=== PATIENT | male | born 1995 | race Caucasian/White ===

== ENCOUNTER 2019-10-02 07:15 | Day surgery (SDC) | payer OTHER ==
[2019-09-29 12:16] VITALS: BMI 25.0
[~2019-10-02 07:15] MED LIST: ACETAMINOPHEN TAB 500 MG TAB PO ONE; DEXAMETHASONE SOD PHOSPHATE 10 MG/ML 1 ML VIAL IV ONE; HEPARIN SODIUM,PORCINE 5,000 UNIT/ML 1 ML VIAL SQ ONE; HYDROmorphone 0.5 MG/0.5 ML SYRINGE IVP PRN; LACTATED RINGERS 1,000 ML IV SCH; LIDOCAINE 1% (10MG/ML) FOR IV START INTRADERMA PRN; ONDANSETRON 4 MG/2 ML VIAL IVP ONE
--- NOTE | 2019-10-02 08:22 | P.GSHP ---
History of Present Illness H&P Date: 10/02/19 Chief Complaint: Right upper quadrant pain This a 24-year-old male with complaints of right quadrant pain. His recent ultrasound shows evidence of a contracted gallbladder. He presents today for laparoscopic cholecystectomy Past Medical History Past Medical History: GERD/Reflux Additional Past Medical History / Comment(s): Environmental Allergies. Pos gallstones. History of Any Multi-Drug Resistant Organisms: None Reported Past Surgical History: Orthopedic Surgery Additional Past Surgical History / Comment(s): RFA Fx surgery as child Past Anesthesia/Blood Transfusion Reactions: No Reported Reaction Smoking Status: Current some day smoker - Past Family History Mother Family Medical History: Cancer Medications and Allergies Home Medications Medication Instructions Recorded Confirmed Type Cariprazine HCl [Vraylar] 1.5 mg PO HS 09/29/19 10/02/19 History Escitalopram [Lexapro] 10 mg PO DAILY 09/29/19 10/02/19 History Allergies Allergy/AdvReac Type Severity Reaction Status Date / Time No Known Allergies Allergy Verified 10/02/19 07:31 Surgical - Exam Vital Signs Temp Pulse Resp BP Pulse Ox 97.5 F L 74 16 135/73 97 10/02/19 07:37 10/02/19 07:37 10/02/19 07:37 10/02/19 07:37 10/02/19 07:37 - General well developed, well nourished, no distress - Eyes PERRL - ENT normal pinna - Neck no masses - Respiratory normal expansion - Cardiovascular Rhythm: regular - Abdomen Mild right upper quadrant pain Abdomen: soft Assessment and Plan Assessment: Chronic cholecystitis. We'll perform laparoscopic cholecystectomy
[2019-10-02] MEDS ORDERED: ROCURONIUM BROMIDE 10 MG/ML 5 ML VIAL IV ONE (09:09)
[2019-10-02] MEDS ORDERED: LIDOCAINE 1% INJ 10MG/ML (20 ML MDV) ONE (09:09)
[2019-10-02] MEDS ORDERED: MIDAZOLAM 2 MG/2 ML VIAL ONE (09:09)
[2019-10-02] MEDS ORDERED: KETOROLAC 30 MG/ML 1 ML VIAL ONE (09:09)
[2019-10-02] MEDS ORDERED: SUCCINYLCHOLINE CHLORIDE 100 MG/5 ML SYR IV ONE (09:09)
[2019-10-02] MEDS ORDERED: fentaNYL (PF) 50 MCG/ML 2 ML AMP ONE (09:09)
[2019-10-02] MEDS ORDERED: PROPOFOL 10 MG/ML 20 ML VIAL IV ONE (09:09)
[2019-10-02] MEDS ORDERED: BUPIVACAIN-EPI 0.25%-1:200,000 30 ML VIAL SQ ONE (09:25)
--- NOTE | 2019-10-02 09:42 | P.OP ---
Date of Procedure: 10/02/19 Preoperative Diagnosis: Cholecystitis Postoperative Diagnosis: Cholelithiasis Cholelithiasis Procedure(s) Performed: Laparoscopic cholecystectomy Anesthesia: SORAYA Surgeon: Jim Mcallister Estimated Blood Loss (ml): 10 Pathology: other (Gallbladder) Condition: stable Disposition: PACU Description of Procedure: The patient was placed on the operating table. The patient received a general endotracheal tube anesthesia. The patients abdomen was prepped and draped in the usual sterile fashion. Through an infraumbilical stab incision, the fascia of the anterior abdominal wall was grasped with a pair of Kochers and then the Veress needle was placed in the peritoneal cavity. Position of the Veress needle was confirmed with positive drop test. The abdomen was then insufflated. After adequate insufflation, the 10 mm trocar was placed in the peritoneal cavity. Following this the laparoscope was placed in the peritoneal cavity. The patient was placed in the head-up, right side up position and then a 5 mm trocar was placed in the right lateral and right subcostal position under direct visualization. A 8 mm trocar was placed in the epigastric position. The gallbladder was grasped in the fundus and infundibulum. Traction on the gallbladder was placed in the lateral and the cephalad positions. The triangle of Calot was visualized.. The cystic duct was bluntly dissected until the union of the cystic duct and common bile duct was seen. A critical view of safety was achieved. The cystic duct was then divided and sealed with the Harmonic scissors. A PDS Endoloop was then placed throughout the cystic duct stump. The cystic artery divided and sealed with the Harmonic scissors. The gallbladder was then removed from the liver bed using Harmonic scissors. The gallbladder was then extracted through the epigastric port site. Operative field was checked for any bleeding spots and Harmonic scissors was used to coagulate the liver bed. The abdomen was irrigated. The trocars were removed. The skin was closed using interrupted 3-0 Vicryl suture. Dermabond dressing were applied. The patient tolerated the procedure well.
[2019-10-02 10:03] LABS: Glucose,Whole Blood 152 mg/dL (75-99)
[2019-10-02] MEDS ORDERED: LACTATED RINGERS 1,000 ML IV ONE (10:43)
[2019-10-02 11:00] VITALS: RESP 16
[2019-10-02 11:11] VITALS: BP 132/80; PULSE 63
[2019-10-02 11:22] VITALS: TEMP 97.6
== END 2019-10-02 11:35 | disposition home or self-care (01) ==
LOC: OR 07:15
PROVIDERS: ATTEND Surgery
DX: K80.10 Calculus of gallbladder with chronic cholecystitis without obstruction (principal); K21.9 Gastro-esophageal reflux disease without esophagitis; F17.210 Nicotine dependence, cigarettes, uncomplicated; F41.9 Anxiety disorder, unspecified; F32.9 Major depressive disorder, single episode, unspecified; Z91.09 Other allergy status, other than to drugs and biological substances; Z98.890 Other specified postprocedural states; Z87.81 Personal history of (healed) traumatic fracture; Z80.9 Family history of malignant neoplasm, unspecified; Z79.899 Other long term (current) drug therapy
CPT/HCPCS: 88304; 47562; J2250; J1644; J1100; J0690; J2405; J2001; J3010; J1885; J0330; J2704; J1170

== ENCOUNTER 2020-01-03 13:48 | Emergency (ER) | payer OTHER ==
[2020-01-03] MEDS ORDERED: SODIUM CHLORIDE 0.9% 1,000 ML IV STA (14:19)
[2020-01-03] MEDS ORDERED: ONDANSETRON 4 MG/2 ML VIAL IVP STA (14:19)
[2020-01-03] MEDS ORDERED: PANTOPRAZOLE 40 MG/10 ML VIAL IVP STA (14:19)
--- NOTE | 2020-01-03 14:20 | ED ---
General Adult HPI - General Chief complaint: Nausea/Vomiting/Diarrhea Stated complaint: Vomiting Time Seen by Provider: 01/03/20 14:00 Source: patient Mode of arrival: ambulatory Limitations: no limitations - History of Present Illness Initial comments: Patient is a 24-year-old male with recently diagnosis of GERD presenting to emergency Department with a chief complaint of black vomit. Patient reports over the last 2-3 days as developed several episodes of dark black vomit. Patient states he does not have any nausea but whenever he lays flat, he begins to vomit. Patient states there is no associated abdominal pain. States for the past several months is also been having diarrhea after he had a cholecystectomy which is typical for him. Although, he does report black stools over the last several days ever since he developed the black vomit. He denies any hematochezia. Denies any urinary symptoms. Denies penile discharge, testicular pain or swelling. States he does drink pop and coffee but not alcohol. Does not have any back pain chest pain shortness of breath. Does not take any antacids. Denies previous history of gastric or duodenal ulcers. - Related Data Home Medications Medication Instructions Recorded Confirmed Cariprazine HCl [Vraylar] 1.5 mg PO HS 09/29/19 10/02/19 Escitalopram [Lexapro] 10 mg PO DAILY 09/29/19 10/02/19 Previous Rx's Medication Instructions Recorded Docusate [Colace] 100 mg PO BID #20 capsule 10/02/19 HYDROcodone/APAP 5-325MG [Malone 1 tab PO Q6HR PRN #10 tab 10/02/19 5-325] Omeprazole [PriLOSEC] 20 mg PO AC-BRKFST #14 cap 01/03/20 Allergies Allergy/AdvReac Type Severity Reaction Status Date / Time No Known Allergies Allergy Verified 01/03/20 13:54 Review of Systems ROS Statement: Those systems with pertinent positive or pertinent negative responses have been documented in the HPI. ROS Other: All systems not noted in ROS Statement are negative. Past Medical History Past Medical History: GERD/Reflux Additional Past Medical History / Comment(s): Environmental Allergies. Pos gallstones. History of Any Multi-Drug Resistant Organisms: None Reported Past Surgical History: Cholecystectomy, Orthopedic Surgery Additional Past Surgical History / Comment(s): RFA Fx surgery as child Past Anesthesia/Blood Transfusion Reactions: No Reported Reaction Past Psychological History: Anxiety, Depression Smoking Status: Vaper Past Alcohol Use History: Occasional Past Drug Use History: Marijuana - Past Family History Mother Family Medical History: Cancer General Exam Limitations: no limitations General appearance: alert, in no apparent distress Head exam: Present: atraumatic, normocephalic, normal inspection Eye exam: Present: normal appearance, PERRL, EOMI Pupils: Present: normal accommodation ENT exam: Present: normal exam, normal oropharynx, mucous membranes moist, TM's normal bilaterally, normal external ear exam Neck exam: Present: normal inspection, full ROM. Absent: tenderness Respiratory exam: Present: normal lung sounds bilaterally. Absent: respiratory distress, wheezes, rales Cardiovascular Exam: Present: regular rate, normal rhythm, normal heart sounds GI/Abdominal exam: Present: soft. Absent: distended, tenderness, guarding, rebound Rectal exam: Present: normal inspection, normal rectal tone. Absent: black stool Extremities exam: Present: normal inspection, full ROM, normal capillary refill Back exam: Present: normal inspection, full ROM. Absent: tenderness Neurological exam: Present: alert, oriented X3, normal gait Psychiatric exam: Present: normal affect, normal mood Skin exam: Present: warm, dry, intact, normal color Course Vital Signs 01/03/20 01/03/20 01/03/20 13:51 15:00 17:41 Temperature 98.1 F 98.0 F Pulse Rate 97 80 83 Respiratory 20 18 18 Rate Blood Pressure 136/93 115/67 108/78 O2 Sat by Pulse 98 97 99 Oximetry Medical Decision Making - Medical Decision Making Patient is a 24-year-old male presenting to emergency Department with chief complaint of black vomit. Patient does not have any abdominal pain discomfort or nausea at this time. He does have history of GERD which is not treated with any medication. She does drink quite a bit of carbonated drinks and coffee. She does not drink any alcohol. Physical examination is unremarkable. CBC reveals no signs of anemia. CMP and UA are unremarkable. Occult stool was negative. Patient has had previous episodes similar to this but he has never been evaluated because the never lasted more than a day. Case was discussed with Dr. Haywood who contacted . He advised the patient have an outpatient follow-up with a GI specialist. Patient will be started on omeprazole daily. He was advised about a special diet regarding a concern for peptic ulcers. He was also advised on left thumb modifications regarding GERD. Strict return parameters were thoroughly discussed with patient was understanding and agreeable. Case discussed with physician. - Lab Data Result diagrams: 01/03/20 14:45 01/03/20 14:45 Lab Results 01/03/20 01/03/20 01/03/20 Range/Units 14:45 14:45 14:45 WBC 8.8 (3.8-10.6) k/uL RBC 5.17 (4.30-5.90) m/uL Hgb 15.3 (13.0-17.5) gm/dL Hct 45.7 (39.0-53.0) % MCV 88.4 (80.0-100.0) fL MCH 29.6 (25.0-35.0) pg MCHC 33.4 (31.0-37.0) g/dL RDW 12.2 (11.5-15.5) % Plt Count 275 (150-450) k/uL Neutrophils % 55 % Lymphocytes % 31 % Monocytes % 8 % Eosinophils % 2 % Basophils % 1 % Neutrophils # 4.8 (1.3-7.7) k/uL Lymphocytes # 2.7 (1.0-4.8) k/uL Monocytes # 0.7 (0-1.0) k/uL Eosinophils # 0.2 (0-0.7) k/uL Basophils # 0.1 (0-0.2) k/uL PT 10.1 (9.0-12.0) sec INR 1.0 (<1.2) APTT 22.9 (22.0-30.0) sec Sodium 140 (137-145) mmol/L Potassium 4.0 (3.5-5.1) mmol/L Chloride 105 (98-107) mmol/L Carbon Dioxide 29 (22-30) mmol/L Anion Gap 6 mmol/L BUN 13 (9-20) mg/dL Creatinine 1.00 (0.66-1.25) mg/dL Est GFR (CKD-EPI)AfAm >90 (>60 ml/min/1.73 sqM) Est GFR (CKD-EPI)NonAf >90 (>60 ml/min/1.73 sqM) Glucose 78 (74-99) mg/dL Calcium 9.6 (8.4-10.2) mg/dL Total Bilirubin 0.6 (0.2-1.3) mg/dL AST 36 (17-59) U/L ALT 54 H (4-49) U/L Alkaline Phosphatase 53 (38-126) U/L Total Protein 7.2 (6.3-8.2) g/dL Albumin 4.5 (3.5-5.0) g/dL Lipase 54 (23-300) U/L Stool Occult Blood (Negative) Blood Type Blood Type Confirm Blood Type Recheck Bld Type Recheck Status Antibody Screen Spec Expiration Date 01/03/20 01/03/20 01/03/20 Range/Units 14:45 14:45 15:05 WBC (3.8-10.6) k/uL RBC (4.30-5.90) m/uL Hgb (13.0-17.5) gm/dL Hct (39.0-53.0) % MCV (80.0-100.0) fL MCH (25.0-35.0) pg MCHC (31.0-37.0) g/dL RDW (11.5-15.5) % Plt Count (150-450) k/uL Neutrophils % % Lymphocytes % % Monocytes % % Eosinophils % % Basophils % % Neutrophils # (1.3-7.7) k/uL Lymphocytes # (1.0-4.8) k/uL Monocytes # (0-1.0) k/uL Eosinophils # (0-0.7) k/uL Basophils # (0-0.2) k/uL PT (9.0-12.0) sec INR (<1.2) APTT (22.0-30.0) sec Sodium (137-145) mmol/L Potassium (3.5-5.1) mmol/L Chloride (98-107) mmol/L Carbon Dioxide (22-30) mmol/L Anion Gap mmol/L BUN (9-20) mg/dL Creatinine (0.66-1.25) mg/dL Est GFR (CKD-EPI)AfAm (>60 ml/min/1.73 sqM) Est GFR (CKD-EPI)NonAf (>60 ml/min/1.73 sqM) Glucose (74-99) mg/dL Calcium (8.4-10.2) mg/dL Total Bilirubin (0.2-1.3) mg/dL AST (17-59) U/L ALT (4-49) U/L Alkaline Phosphatase (38-126) U/L Total Protein (6.3-8.2) g/dL Albumin (3.5-5.0) g/dL Lipase (23-300) U/L Stool Occult Blood Negative (Negative) Blood Type A Positive Blood Type Confirm A Positive Blood Type Recheck No Previous Record Bld Type Recheck Status CABO Indicated Antibody Screen NEGATIVE Spec Expiration Date 01/06/2020 - 2304 Disposition Clinical Impression: Dyspepsia, Nausea & vomiting Disposition: HOME SELF-CARE Condition: Stable Instructions (If sedation given, give patient instructions): Diet for Stomach Ulcers and Gastritis (ED), Gastroesophageal Reflux Disease (ED), Indigestion (ED) Additional Instructions: Follow-up with a GI specialist. Take medication as directed. Avoid alcohol, carbonated drinks or coffee. Avoid any acidic foods. Return to emergency department if symptoms worsen. Prescriptions: Omeprazole [PriLOSEC] 20 mg PO AC-BRKFST #14 cap Is patient prescribed a controlled substance at d/c from ED?: No Referrals: Sherlyn Guajardo DO [Primary Care Provider] - 1-2 days Valencia Alcantar MD [STAFF PHYSICIAN] - 1-2 days Time of Disposition: 16:42
[2020-01-03 15:04] LABS: Basophils # (A) 0.1 k/uL (0-0.2); Basophils % (A) 1 %; Eosinophils # (A) 0.2 k/uL (0-0.7); Eosinophils % (A) 2 %; HCT 45.7 % (39.0-53.0); HGB 15.3 gm/dL (13.0-17.5); Lymphocytes # (A) 2.7 k/uL (1.0-4.8); Lymphocytes % (A) 31 %; MCH 29.6 pg (25.0-35.0); MCHC 33.4 g/dL (31.0-37.0); MCV 88.4 fL (80.0-100.0); Monocytes # (A) 0.7 k/uL (0-1.0); Monocytes % (A) 8 %; Neutrophils # (A) 4.8 k/uL (1.3-7.7); Neutrophils % (A) 55 %; Platelet Count 275 k/uL (150-450); RBC 5.17 m/uL (4.30-5.90); RDW 12.2 % (11.5-15.5); WBC 8.8 k/uL (3.8-10.6)
[2020-01-03 15:13] LABS: ALT 54 U/L (4-49); AST 36 U/L (17-59); African American GFR (CKD) >90 (>60 ml/min/1.73 sqM); Albumin 4.5 g/dL (3.5-5.0); Alkaline Phosphatase 53 U/L (38-126); Anion Gap 6 mmol/L; Blood Urea Nitrogen 13 mg/dL (9-20); Calcium 9.6 mg/dL (8.4-10.2); Carbon Dioxide 29 mmol/L (22-30); Chloride 105 mmol/L (98-107); Glucose 78 mg/dL (74-99); Non-African American GFR(CKD) >90 (>60 ml/min/1.73 sqM); Partial Thromboplastin Time 22.9 sec (22.0-30.0); Prothrombin Time 10.1 sec (9.0-12.0); Sodium 140 mmol/L (137-145); Total Bilirubin 0.6 mg/dL (0.2-1.3); Total Protein 7.2 g/dL (6.3-8.2)
[2020-01-03 15:14] VITALS: RESP 18
[2020-01-03 17:42] VITALS: BP 108/78; PULSE 83; TEMP 98
== END 2020-01-03 17:42 | disposition home or self-care (01) ==
LOC: EC 13:48
DX: R10.13 Epigastric pain (principal); R11.2 Nausea with vomiting, unspecified; F41.9 Anxiety disorder, unspecified; F32.9 Major depressive disorder, single episode, unspecified; F17.290 Nicotine dependence, other tobacco product, uncomplicated; Z79.899 Other long term (current) drug therapy; Z90.49 Acquired absence of other specified parts of digestive tract
CPT/HCPCS: 36415; 86900; 86901; 80053; 83690; 85025; 85610; 85730; 86850; 82272; 99284; 96374; 96375; 96361 ×2; J2405; C9113

== ENCOUNTER 2020-09-18 22:45 | Emergency (ER) | payer OTHER ==
--- NOTE | 2020-09-18 23:03 | ED ---
Psych HPI - General Stated Complaint: Mental Health Time Seen by Provider: 09/18/20 23:02 - Related Data Home Medications Medication Instructions Recorded Confirmed FLUoxetine HCL [PROzac] 20 mg PO HS 09/18/20 09/18/20 Allergies Allergy/AdvReac Type Severity Reaction Status Date / Time No Known Allergies Allergy Verified 09/18/20 23:21 Review of Systems ROS Statement: Those systems with pertinent positive or pertinent negative responses have been documented in the HPI. ROS Other: All systems not noted in ROS Statement are negative. Past Medical History Past Medical History: GERD/Reflux Additional Past Medical History / Comment(s): Environmental Allergies. Pos gallstones. History of Any Multi-Drug Resistant Organisms: None Reported Past Surgical History: Cholecystectomy, Orthopedic Surgery Additional Past Surgical History / Comment(s): RFA Fx surgery as child Past Anesthesia/Blood Transfusion Reactions: No Reported Reaction Past Psychological History: Anxiety, Depression Smoking Status: Vaper Past Alcohol Use History: Occasional Past Drug Use History: Marijuana - Past Family History Mother Family Medical History: Cancer Course Vital Signs 09/18/20 22:50 Temperature 98.2 F Pulse Rate 82 Respiratory 16 Rate Blood Pressure 137/89 O2 Sat by Pulse 98 Oximetry Disposition Clinical Impression: Depression Disposition: HOME SELF-CARE Condition: Fair Instructions (If sedation given, give patient instructions): Depression (ED) Is patient prescribed a controlled substance at d/c from ED?: No Referrals: Sherlyn Guajardo DO [Primary Care Provider] - 1-2 days
[2020-09-18 23:08] VITALS: TEMP 98.2
[2020-09-19 02:41] VITALS: BP 133/74; PULSE 72; RESP 15
== END 2020-09-19 02:56 | disposition home or self-care (01) ==
LOC: EC 22:45
DX: F32.9 Major depressive disorder, single episode, unspecified (principal); Z90.49 Acquired absence of other specified parts of digestive tract; F17.290 Nicotine dependence, other tobacco product, uncomplicated; F12.90 Cannabis use, unspecified, uncomplicated
CPT/HCPCS: 82075; 99283

== ENCOUNTER 2021-04-09 11:31 | Emergency (ER) | payer OTHER ==
[2021-04-09 12:15] VITALS: BP 128/72; PULSE 67; RESP 18; TEMP 98.2
[2021-04-09 12:48] LABS: Basophils % (A) 1 %; Eosinophils # (A) 0.2 k/uL (0-0.7); Eosinophils % (A) 3 %; HCT 40.8 % (39.0-53.0); HGB 14.1 gm/dL (13.0-17.5); Lymphocytes % (A) 31 %; MCH 30.4 pg (25.0-35.0); MCHC 34.5 g/dL (31.0-37.0); MCV 88.1 fL (80.0-100.0); Mean Platelet Volume 7.1; Monocytes # (A) 0.3 k/uL (0-1.0); Monocytes % (A) 4 %; Neutrophils # (A) 3.9 k/uL (1.3-7.7); Neutrophils % (A) 59 %; Platelet Count 304 k/uL (150-450); RBC 4.64 m/uL (4.30-5.90); RDW 13.3 % (11.5-15.5); WBC 6.5 k/uL (3.8-10.6)
[2021-04-09 13:33] LABS: African American GFR (CKD) >90 (>60 ml/min/1.73 sqM); Anion Gap 11 mmol/L; Blood Urea Nitrogen 15 mg/dL (9-20); Calcium 9.7 mg/dL (8.4-10.2); Carbon Dioxide 22 mmol/L (22-30); Chloride 106 mmol/L (98-107); Glucose 125 mg/dL (74-99); Non-African American GFR(CKD) >90 (>60 ml/min/1.73 sqM); Potassium 4.2 mmol/L (3.5-5.1); Sodium 139 mmol/L (137-145)
--- NOTE | 2021-04-09 13:54 | ED ---
General Adult HPI - General Source: patient, RN notes reviewed, old records reviewed Mode of arrival: EMS Limitations: no limitations <Amando Guajardo - Last Filed: 04/09/21 14:05> <Tree Matthew - Last Filed: 04/09/21 16:38> - General Chief complaint: Psychiatric Symptoms Stated complaint: Mental Health Eval Time Seen by Provider: 04/09/21 11:35 - History of Present Illness Initial comments: Patient is a 26-year-old male who presents emergency department over concern for psychiatric evaluation. Patient was to be evaluated by psychiatry. He has a history of bipolar disorder. States he has not been taking his medication. Has been having increased suicidal ideations last few weeks. Does have a history of self injury behavior, cutting his bilateral anterior arms. His recent cuts on the left arm. Denies any ingestions, drug use. Does endorse occasional alcohol use. His only acute complaint at this time is a multi week history of intermittent rectal bleeding. Describes as bright red. States this is not occurred over the last few days. Denies any acute symptoms including lightheadedness, chest pain, shortness breath. Due to believes he has a hemorrhoid. Would like us to get evaluated as well. We'll start a follow-up with his PCP regarding this. Denies any history of fevers, chills, sick contacts. His no other acute complaints at this time. (Amando Guajardo) - Related Data Home Medications Medication Instructions Recorded Confirmed FLUoxetine HCL 40 mg PO DAILY 04/09/21 04/09/21 Allergies Allergy/AdvReac Type Severity Reaction Status Date / Time No Known Allergies Allergy Verified 04/09/21 12:51 Review of Systems ROS Other: All systems not noted in ROS Statement are negative. <Amando Guajardo - Last Filed: 04/09/21 14:05> ROS Other: All systems not noted in ROS Statement are negative. <Tree Matthew - Last Filed: 04/09/21 16:38> ROS Statement: Those systems with pertinent positive or pertinent negative responses have been documented in the HPI. Review of Systems: CONST: Denies fever EYES: Denies blurry vision ENT: Denies nasal congestion C/V: Denies Chest pain RESP: Denies shortness of breath GI: Denies abdominal pain : Denies dysuria SKIN: Denies rash. MSK: Denies joint pain. NEURO: Denies headache PSYCH: Denies homicidal ideations/plans/attempts. Denies visual or auditory hallucinations. He endorses suicidal ideations, but denies any current plans or attempts. History of self injury behavior. (Amando Guajardo) Past Medical History Past Medical History: GERD/Reflux Additional Past Medical History / Comment(s): Environmental Allergies. Pos gallstones. History of Any Multi-Drug Resistant Organisms: None Reported Past Surgical History: Cholecystectomy, Orthopedic Surgery Additional Past Surgical History / Comment(s): RFA Fx surgery as child Past Anesthesia/Blood Transfusion Reactions: No Reported Reaction Past Psychological History: Anxiety, Depression Smoking Status: Vaper Past Alcohol Use History: Occasional Past Drug Use History: Marijuana - Past Family History Mother Family Medical History: Cancer <Amando Guajardo - Last Filed: 04/09/21 14:05> General Exam Limitations: no limitations <Amando Guajardo - Last Filed: 04/09/21 14:05> - General Exam Comments Initial Comments: General: Appears in no acute distress. HEAD: Normal with no signs of head trauma. EYES: PERRLA, EOMI, conjunctiva normal, no discharge. ENT: Hearing grossly intact, normal oropharynx. RESPIRATORY: Clear breath sounds bilaterally. No wheezes, rales, or rhonchi. C/V: Regular rate and rhythm. S1 and S2 auscultated, no edema, peripheral pulses 2+ and intact throughout ABD: Abd is soft, nontender, nondistended. Rectal exam was performed in the presence of staff member. No gross blood. No obvious hemorrhoids. Normal exam. EXT: Normal range of motion, no obvious deformity SKIN: No rashes or lesions observed on exposed skin. NEURO: Alert and oriented 4. No focal sensory strength deficits. (Amando Guajardo) Course Vital Signs 04/09/21 12:00 Temperature 98.2 F Pulse Rate 67 Respiratory 18 Rate Blood Pressure 128/72 O2 Sat by Pulse 97 Oximetry Medical Decision Making - Lab Data Result diagrams: 04/09/21 12:32 04/09/21 12:32 <Amando Guajardo - Last Filed: 04/09/21 14:05> - Lab Data Result diagrams: 04/09/21 12:32 04/09/21 12:32 <Tree Matthew - Last Filed: 04/09/21 16:38> - Medical Decision Making Based on the patient's presentation and physical exam, I do believe he refers psychiatric evaluation. He was placed in green scrubs. For the patient's rectal bleeding, rectal exam showed no gross blood but we will send fecal occult blood as well as obtain basic labs to ensure he is not anemic. He was in agreement this plan. Breathalyzer alcohol level was 0. UDS is pending at this time. Laboratory studies are remarkable for a normal hemoglobin. Labs are otherwise unremarkable. Negative stool occult blood. Patient is medically cleared for evaluation by psychiatry at this time. Disp osition is pending psychiatric evaluation. Due to the oncoming emergency department physician, Dr. Lara pending psychiatric evaluation. (Amando Guajardo) Patient had been seen by EPS and felt to be safe for discharge. He had sinusitis safety plan. He is given outpatient referral and resources. Patient agreeable with this plan. (Tree Matthew) - Lab Data Lab Results 04/09/21 04/09/21 04/09/21 Range/Units 12:30 12:32 12:32 WBC 6.5 (3.8-10.6) k/uL RBC 4.64 (4.30-5.90) m/uL Hgb 14.1 (13.0-17.5) gm/dL Hct 40.8 (39.0-53.0) % MCV 88.1 (80.0-100.0) fL MCH 30.4 (25.0-35.0) pg MCHC 34.5 (31.0-37.0) g/dL RDW 13.3 (11.5-15.5) % Plt Count 304 (150-450) k/uL MPV 7.1 Neutrophils % 59 % Lymphocytes % 31 % Monocytes % 4 % Eosinophils % 3 % Basophils % 1 % Neutrophils # 3.9 (1.3-7.7) k/uL Lymphocytes # 2.0 (1.0-4.8) k/uL Monocytes # 0.3 (0-1.0) k/uL Eosinophils # 0.2 (0-0.7) k/uL Basophils # 0.0 (0-0.2) k/uL Sodium 139 (137-145) mmol/L Potassium 4.2 (3.5-5.1) mmol/L Chloride 106 (98-107) mmol/L Carbon Dioxide 22 (22-30) mmol/L Anion Gap 11 mmol/L BUN 15 (9-20) mg/dL Creatinine 0.91 (0.66-1.25) mg/dL Est GFR (CKD-EPI)AfAm >90 (>60 ml/min/1.73 sqM) Est GFR (CKD-EPI)NonAf >90 (>60 ml/min/1.73 sqM) Glucose 125 H (74-99) mg/dL Calcium 9.7 (8.4-10.2) mg/dL Stool Occult Blood (Negative) Urine Opiates Screen (NotDetected) Ur Oxycodone Screen (NotDetected) Urine Methadone Screen (NotDetected) Ur Propoxyphene Screen (NotDetected) Ur Barbiturates Screen (NotDetected) U Tricyclic Antidepress (NotDetected) Ur Phencyclidine Scrn (NotDetected) Ur Amphetamines Screen (NotDetected) U Methamphetamines Scrn (NotDetected) U Benzodiazepines Scrn (NotDetected) Urine Cocaine Screen (NotDetected) U Marijuana (THC) Screen (NotDetected) Coronavirus (PCR) Not Detected (Not Detectd) 04/09/21 04/09/21 Range/Units 13:27 14:38 WBC (3.8-10.6) k/uL RBC (4.30-5.90) m/uL Hgb (13.0-17.5) gm/dL Hct (39.0-53.0) % MCV (80.0-100.0) fL MCH (25.0-35.0) pg MCHC (31.0-37.0) g/dL RDW (11.5-15.5) % Plt Count (150-450) k/uL MPV Neutrophils % % Lymphocytes % % Monocytes % % Eosinophils % % Basophils % % Neutrophils # (1.3-7.7) k/uL Lymphocytes # (1.0-4.8) k/uL Monocytes # (0-1.0) k/uL Eosinophils # (0-0.7) k/uL Basophils # (0-0.2) k/uL Sodium (137-145) mmol/L Potassium (3.5-5.1) mmol/L Chloride (98-107) mmol/L Carbon Dioxide (22-30) mmol/L Anion Gap mmol/L BUN (9-20) mg/dL Creatinine (0.66-1.25) mg/dL Est GFR (CKD-EPI)AfAm (>60 ml/min/1.73 sqM) Est GFR (CKD-EPI)NonAf (>60 ml/min/1.73 sqM) Glucose (74-99) mg/dL Calcium (8.4-10.2) mg/dL Stool Occult Blood Negative (Negative) Urine Opiates Screen Not Detected (NotDetected) Ur Oxycodone Screen Not Detected (NotDetected) Urine Methadone Screen Not Detected (NotDetected) Ur Propoxyphene Screen Not Detected (NotDetected) Ur Barbiturates Screen Not Detected (NotDetected) U Tricyclic Antidepress Not Detected (NotDetected) Ur Phencyclidine Scrn Not Detected (NotDetected) Ur Amphetamines Screen Not Detected (NotDetected) U Methamphetamines Scrn Not Detected (NotDetected) U Benzodiazepines Scrn Not Detected (NotDetected) Urine Cocaine Screen Not Detected (NotDetected) U Marijuana (THC) Screen Detected H (NotDetected) Coronavirus (PCR) (Not Detectd) Disposition <Amanod Guajardo - Last Filed: 04/09/21 14:05> Is patient prescribed a controlled substance at d/c from ED?: No Time of Disposition: 16:38 <rTee Matthew - Last Filed: 04/09/21 16:38> Clinical Impression: Encounter for psychiatric assessment, Suicidal ideation Disposition: HOME SELF-CARE Condition: Fair Instructions (If sedation given, give patient instructions): Depression (ED) Referrals: Sherlyn Guajardo DO [Primary Care Provider] - 1-2 days
[2021-04-09 15:03] LABS: Urn Cannabinoid Scrn Detected (NotDetected)
[2021-04-09 15:04] LABS: Amphetamine Screen,Urine Not Detected (NotDetected); Barbiturate Screen,Urine Not Detected (NotDetected); Benzodiazepines Screen,Urine Not Detected (NotDetected); Cocaine Screen,Urine Not Detected (NotDetected); Methadone Screen, Urine Not Detected (NotDetected); Opiate Screen,Urine Not Detected (NotDetected); Oxycodone Screen, Urine Not Detected (NotDetected); Phencyclidine Screen,Urine Not Detected (NotDetected); Tricyclic Antidepressant,Urine Not Detected (NotDetected)
== END 2021-04-09 17:45 | disposition home or self-care (01) ==
LOC: SUPCPDRO 11:31 → EC 11:31
DX: R45.851 Suicidal ideations (principal); F17.290 Nicotine dependence, other tobacco product, uncomplicated; F31.9 Bipolar disorder, unspecified; Z79.899 Other long term (current) drug therapy; Z20.822 Contact with and (suspected) exposure to COVID-19
CPT/HCPCS: 36415; 80048; 80306; 82075; 82272; 85025; 87635; 99285

== ENCOUNTER 2022-01-19 11:54 | Day surgery (SDC) | payer OTHER ==
[2022-01-16 11:32] VITALS: BMI 26.4
[~2022-01-19 11:54] MED LIST changes: -ACETAMINOPHEN TAB 500 MG TAB PO ONE; -DEXAMETHASONE SOD PHOSPHATE 10 MG/ML 1 ML VIAL IV ONE; -HEPARIN SODIUM,PORCINE 5,000 UNIT/ML 1 ML VIAL SQ ONE; -HYDROmorphone 0.5 MG/0.5 ML SYRINGE IVP PRN; -ONDANSETRON 4 MG/2 ML VIAL IVP ONE
[2022-01-19 12:08] VITALS: TEMP 97.2
[2022-01-19] MEDS ORDERED: LACTATED RINGERS 1,000 ML IV ONE (12:08)
--- NOTE | 2022-01-19 12:32 | P.GSHP ---
History of Present Illness H&P Date: 01/19/22 Chief Complaint: GERD This a 27-year-old male presents today for EGD. Patient is issues with GERD. Past Medical History Past Medical History: GERD/Reflux Additional Past Medical History / Comment(s): Environmental Allergies., hx of blood in stool approx 1 year ago. History of Any Multi-Drug Resistant Organisms: None Reported Past Surgical History: Cholecystectomy, Orthopedic Surgery Additional Past Surgical History / Comment(s): RFA Fx surgery as child Past Anesthesia/Blood Transfusion Reactions: Previous Problems w/ Anesthesia Additional Past Anesthesia/Blood Transfusion Reaction / Comment(s): pt states ? seizure after gall bladder surgery. Past Psychological History: Anxiety, Depression Smoking Status: Former smoker, Vaper Past Alcohol Use History: Occasional Additional Past Alcohol Use History / Comment(s): Smoked for 2 years, 20 cigarettes daily, quit 06/2019, vapes daily. drinks weekends Past Drug Use History: Marijuana Additional Drug Use History / Comment(s): occ use - Past Family History Mother Family Medical History: Cancer Medications and Allergies Home Medications Medication Instructions Recorded Confirmed Type Acetaminophen [Tylenol Extra 500 - 1,000 mg PO DIRECTED 01/16/22 01/16/22 History Strength] Dicyclomine [Bentyl] 10 mg PO TID PRN 01/16/22 01/16/22 History Ibuprofen [Motrin Ib] 400 - 600 mg PO DIRECTED 01/16/22 01/16/22 History Omeprazole 20 mg PO DAILY 01/16/22 01/16/22 History Allergies Allergy/AdvReac Type Severity Reaction Status Date / Time FRUIT AdvReac APPLES, Uncoded 01/16/22 11:34 BERRIES, BANANAS CAUSE ITCHING & SWELLING OF GUMS Surgical - Exam Vital Signs Temp Pulse Resp BP Pulse Ox 97.2 F L 77 18 142/67 98 01/19/22 12:07 01/19/22 12:07 01/19/22 12:07 01/19/22 12:07 01/19/22 12:07 - General well developed, well nourished, no distress - Eyes PERRL - ENT normal pinna - Neck no masses - Respiratory normal expansion - Cardiovascular Rhythm: regular - Abdomen Abdomen: soft, non tender Assessment and Plan Assessment: GERD. We'll perform EGD.
[2022-01-19] MEDS ORDERED: LIDOCAINE 2% INJ 20 MG/ML (2 ML VIAL) ONE (12:33)
[2022-01-19] MEDS ORDERED: PROPOFOL 10 MG/ML 20 ML VIAL IV ONE (12:33)
--- NOTE | 2022-01-19 12:46 | P.OP ---
Date of Procedure: 01/19/22 Preoperative Diagnosis: GERD Postoperative Diagnosis: Sliding hiatal hernia Esophagitis Mild antral gastritis Procedure(s) Performed: EGD Anesthesia: MAC Surgeon: Jim Mcallister Pathology: other (Antrum, esophagus) Condition: stable Disposition: PACU Description of Procedure: The patient's placed on the endoscopy table in the lateral position. He received IV sedation. The gastroscope oropharynx passed in the esophagus and stomach. Scope was placed through the pylorus. The first and second portion of duodenum appeared normal scope was then brought back the antrum this appeared mildly inflamed. A biopsies performed. Scope was then retroflexed and remainder the stomach appeared normal. There was a moderate size sliding hiatal hernia. The GE junction was at 38 cm. The distal esophagus was mildly inflamed. Biopsies performed. The proximal esophagus appeared normal. Scope was withdrawn for patient.
[2022-01-19 12:49] VITALS: BP 109/71; PULSE 73; RESP 16
== END 2022-01-19 13:29 | disposition home or self-care (01) ==
LOC: ORWHC2ENDO 11:54
PROVIDERS: ATTEND Surgery
DX: K29.50 Unspecified chronic gastritis without bleeding (principal); K44.9 Diaphragmatic hernia without obstruction or gangrene; K21.00 Gastro-esophageal reflux disease with esophagitis, without bleeding; F32.A Depression, unspecified; F41.9 Anxiety disorder, unspecified; F10.90 Alcohol use, unspecified, uncomplicated; F12.10 Cannabis abuse, uncomplicated; Z90.49 Acquired absence of other specified parts of digestive tract; Z98.890 Other specified postprocedural states; Z87.891 Personal history of nicotine dependence; Z79.1 Long term (current) use of non-steroidal anti-inflammatories (NSAID); Z79.899 Other long term (current) drug therapy; Z80.9 Family history of malignant neoplasm, unspecified; Z91.018 Allergy to other foods
CPT/HCPCS: 88305; 43239; J2704; J2001

== ENCOUNTER 2022-02-09 08:59 | Observation (INO) | payer OTHER ==
[~2022-02-09 08:59] MED LIST changes: +ACETAMINOPHEN TAB 500 MG TAB PO PRN; +HEPARIN SODIUM,PORCINE/PF 5,000 UNIT/0.5 ML SYRINGE SQ PRN; -LACTATED RINGERS 1,000 ML IV SCH; -LIDOCAINE 1% (10MG/ML) FOR IV START INTRADERMA PRN
[2022-02-09] MEDS ORDERED: DEXAMETHASONE SOD PHOSPHATE 4 MG/ML 1 ML VIAL IV ONE (09:08)
[2022-02-09] MEDS ORDERED: HYDROmorphone 0.5 MG/0.5 ML SYRINGE IVP PRN (09:08)
[2022-02-09] MEDS ORDERED: ONDANSETRON 4 MG/2 ML VIAL IVP ONE ×2 (09:08→13:18)
[2022-02-09] MEDS: LACTATED RINGERS 1,000 ML IV SCH (09:17)
--- NOTE | 2022-02-09 10:33 | P.GSHP ---
History of Present Illness H&P Date: 02/09/22 Chief Complaint: GERD This a 27-year-old male referred from Alannah Rodriguez NP.The patient has had long-standing problems with reflux esophagitis. The patient underwent recent EGD is found have evidence of esophagitis. Patient has been well informed on the procedure of laparoscopic Tasia fundoplication. The patient is aware the risk of the conversion to the open procedure, risk of injury to the stomach, liver and spleen. The patient is also a risk of recurrent GERD and dysphagia symptoms. The patient understands there is a postoperative diet of full liquids for 2 weeks after surgery. Past Medical History Past Medical History: GERD/Reflux Additional Past Medical History / Comment(s): Environmental Allergies. Pos gallstones. History of Any Multi-Drug Resistant Organisms: None Reported Past Surgical History: Cholecystectomy, Orthopedic Surgery Additional Past Surgical History / Comment(s): RFA Fx surgery as child Past Anesthesia/Blood Transfusion Reactions: Previous Problems w/ Anesthesia Additional Past Anesthesia/Blood Transfusion Reaction / Comment(s): reports questionable seizure activity coming out of anesthesia with his cholecystectomy states he was having shaking/tremors/shivering movements Smoking Status: Vaper - Past Family History Mother Family Medical History: Cancer Medications and Allergies Home Medications Medication Instructions Recorded Confirmed Type Acetaminophen [Tylenol Extra 500 - 1,000 mg PO DIRECTED 01/16/22 02/09/22 History Strength] Dicyclomine [Bentyl] 10 mg PO TID PRN 01/16/22 02/09/22 History Ibuprofen [Motrin Ib] 400 - 600 mg PO DIRECTED 01/16/22 02/09/22 History Omeprazole 20 mg PO DAILY 01/16/22 02/09/22 History Melatonin 10 mg PO HS PRN 02/05/22 02/09/22 History Allergies Allergy/AdvReac Type Severity Reaction Status Date / Time FRUIT AdvReac APPLES, Uncoded 02/09/22 09:15 BERRIES, BANANAS CAUSE ITCHING & SWELLING OF GUMS Surgical - Exam Vital Signs Temp Pulse Resp BP Pulse Ox 97.0 F L 96 18 126/75 99 02/09/22 09:13 02/09/22 09:13 02/09/22 09:13 02/09/22 09:13 02/09/22 09:13 - General well developed, well nourished, no distress - Eyes PERRL - ENT normal pinna - Neck no masses - Respiratory normal expansion - Cardiovascular Rhythm: regular - Abdomen Abdomen: soft, non tender Assessment and Plan Assessment: GERD. We'll perform laparoscopic Tasia fundal plication
[2022-02-09] MEDS ORDERED: LIDOCAINE 2% INJ 20 MG/ML (2 ML VIAL) ONE (10:43)
[2022-02-09] MEDS ORDERED: fentaNYL (PF) 50 MCG/ML 2 ML AMP ONE (10:43)
[2022-02-09] MEDS ORDERED: KETOROLAC 15 MG/ML 1 ML VIAL ONE (10:43)
[2022-02-09] MEDS ORDERED: ePHEDrine 50 MG/ML 1 ML VIAL ONE (10:43)
[2022-02-09] MEDS ORDERED: GLYCOPYRROLATE 0.2 MG/ML 2 ML VIAL ONE (10:43)
[2022-02-09] MEDS ORDERED: MIDAZOLAM 2 MG/2 ML VIAL ONE (10:43)
[2022-02-09] MEDS ORDERED: ROCURONIUM 10 MG/ML (5 ML VIAL) IV ONE (10:43)
[2022-02-09] MEDS ORDERED: SUCCINYLCHOLINE CHLORIDE 200 MG/10 ML VIAL IV ONE (10:43)
[2022-02-09] MEDS ORDERED: PROPOFOL 10 MG/ML 20 ML VIAL IV ONE (10:43)
[2022-02-09] MEDS ORDERED: NEOSTIGMINE 1 MG/ML 10 ML VIAL ONE (10:43)
[2022-02-09] MEDS ORDERED: BUPIVACAINE (PF) 0.25% 30 ML VIAL SQ ONE ×2 (10:54→11:10)
--- NOTE | 2022-02-09 11:47 | P.OP ---
Date of Procedure: 02/09/22 Preoperative Diagnosis: GERD Postoperative Diagnosis: GERD Procedure(s) Performed: Laparoscopic Tasia fundoplication Anesthesia: SORAYA Surgeon: Jim Mcallister Estimated Blood Loss (ml): 5 Pathology: none sent Condition: stable Disposition: PACU Description of Procedure: HarThe patient was placed on the operating table in the supine position. The patient received general anesthesia. And was placed in dorsal lithotomy position. The patient was prepped and draped in the usual sterile fashion. The skin incision sites were anesthetized with 1% local Xylocaine. The skin was incised in the left periumbilical area and then using a blade less 5 mm trocar under direct visualization panel cavity was entered. After adequate insufflation the laparoscope was then placed into the peritoneal cavity. Next a 5 mm trochars placed in the right epigastric position. Another 5 millimeter trocar the right lateral position. Another 5 millimeter trocar in the left lateral position a 5 mm trocar is placed in the left epigastric position. And then the initial 5 mm trocar was exchanged for a 10 mm trocar. The left lateral lobe liver was retracted. The hernia was seen. The crural defect was then dissected using the Harmonic scissors device. A 360 crural dissection was performed the esophagus stomach was reduced back into the peritoneal Cavity. The crural defect was then closed using 2-0 Ethibond suture. Next the fundus of the stomach was mobilized using the [place] scissors device. and then a 58- Dutch bougie dilator was placed oropharynx passed into the esophagus and stomach the fundal plication wrap was then performed by grasping the fundus post eriorly and bringing it around the esophagus and stomach fundoplication was then performed using 2-0 Ethibond suture. Care was taken that the fundal location rested over top of the intra-abdominal esophagus. There was no injury seen to the stomach or esophagus. The dilator was then withdrawn. The abdomen was irrigated there is no bleeding seen. The trochars were then withdrawn and then skin incision sites were closed using 3-0 Monocryl suture Steri-Strips are applied. Patient thought procedure well and sent to recovery room in stable condition.
[2022-02-09] MEDS ORDERED: ONDANSETRON 4 MG/2 ML VIAL IVP PRN (11:48)
[2022-02-09] MEDS: HYDROmorphone 1 MG/ML 1 ML SYRINGE IVP PRN ×2 (16:06→20:13)
[2022-02-09] MEDS: D5-0.45% NACL WITH KCL 20MEQ/L 1,000 ML IV SCH (17:57)
[2022-02-10] MEDS: HYDROmorphone 1 MG/ML 1 ML SYRINGE IVP PRN ×2 (00:50→08:27)
[2022-02-10] MEDS: D5-0.45% NACL WITH KCL 20MEQ/L 1,000 ML IV SCH (00:53)
[2022-02-10 08:12] VITALS: BP 130/74; PULSE 64; RESP 16; TEMP 97.5
[2022-02-10] MEDS ORDERED: HYDROcodone/APAP 5-325MG 1 EACH TAB PO PRN (08:17)
[2022-02-10] MEDS ORDERED: ENOXAPARIN 40 MG/0.4 ML SYRINGE SQ SCH (09:00)
[2022-02-10] MEDS: LACTATED RINGERS 1,000 ML IV SCH (11:08)
[2022-02-10 13:22] VITALS: BMI 26.7
--- NOTE | 2022-02-10 13:29 | P.DS ---
Providers Date of admission: 02/09/22 21:51 Expected date of discharge: 02/10/22 Attending physician: Jim Mcallister Consults: 02/09/22 11:48 Consult Physician Routine Consulting Provider: Franklyn Durán Consult Reason/Comments: Medical management Do you want consulting provider notified?: Yes Primary care physician: Hannah Simon [facility] Hospital Course: Discharge diagnosis GERD status post laparoscopic Tasia fundoplication Hospital course This is a 27-year-old male with a known history of GERD and reflux esophagitis. Patient is status post arthroscopic Tasia fundoplication. He is tolerating diet. His pain is controlled. He is afebrile. He has been up and ambulating. He is stable for discharge. Please refer to chart for any further details. Physician Clearance Coordinator note has been reviewed by physician. Signing provider agrees with the documented findings, assessment, and plan of care. Patient Condition at Discharge: Stable Plan - Discharge Summary Discharge Rx Participant: No New Discharge Prescriptions: New HYDROcodone/APAP 5-325MG [[place] 5-325] 1 tab PO Q6HR PRN 3 Days #12 tab PRN Reason: Pain Docusate [Colace] 100 mg PO BID #30 capsule Continue Acetaminophen [Tylenol Extra Strength] 500 - 1,000 mg PO DIRECTED Omeprazole 20 mg PO DAILY Dicyclomine [Bentyl] 10 mg PO TID PRN PRN Reason: upset stomach Melatonin 10 mg PO HS PRN PRN Reason: Insomnia Discontinued Ibuprofen [Motrin Ib] 400 - 600 mg PO DIRECTED Discharge Medication List Acetaminophen [Tylenol Extra Strength] 500 - 1,000 mg PO DIRECTED 01/16/22 [History] Dicyclomine [Bentyl] 10 mg PO TID PRN 01/16/22 [History] Omeprazole 20 mg PO DAILY 01/16/22 [History] Melatonin 10 mg PO HS PRN 02/05/22 [History] Docusate [Colace] 100 mg PO BID #30 capsule 02/10/22 [Rx] HYDROcodone/APAP 5-325MG [[place] 5-325] 1 tab PO Q6HR PRN 3 Days #12 tab 02/10/22 [Rx] Follow up Appointment(s)/Referral(s): Jim Mcallister MD [STAFF PHYSICIAN] - 02/24/22 2:30 pm Patient Instructions/Handouts: *Surgery [facility] - ([facility]) Lap Tasia Fundiplication Post-Op Instructions Activity/Diet/Wound Care/Special Instructions: No driving while taking [place] No lifting over 10 pounds You may shower. No soaking or tub baths for 2 weeks Very light activity until you are reevaluated at your follow up appointment with your surgeon Continue a soft diet until seen by surgery Discharge Disposition: HOME SELF-CARE
== END 2022-02-10 13:39 | disposition home or self-care (01) ==
LOC: OR 08:59 → 6NMEDSUR 15:19 → OR 21:51
PROVIDERS: ADMIT Surgery; ATTEND Surgery
DX: K21.00 Gastro-esophageal reflux disease with esophagitis, without bleeding (principal); Z90.49 Acquired absence of other specified parts of digestive tract; Z80.9 Family history of malignant neoplasm, unspecified; Z79.899 Other long term (current) drug therapy
CPT/HCPCS: 96376; 96365; 96366; 96375; 96368; 43280; G0378 ×2; J2250; J0330; J1100; J2710; J0690 ×2; J2405; J3010; J1170 ×3; J1885; J2704; J1644; J2001